=== PATIENT | female | born 1950 | race Caucasian/White ===

== ENCOUNTER 2017-12-02 00:18 | Inpatient (IN) | payer MEDICARE, BC ==
[2017-12-02 01:18] LABS: ADD MAN DIFF? NO
[2017-12-02] MEDS: morphine 4 MG/ML VIAL IV (01:33)
[2017-12-02] MEDS: ONDANSETRON 4 MG INJ IV (01:33)
[2017-12-02 01:43] LABS: ALANINE AMINOTRANSFERASE 37 IU/L (13-69); ALBUMIN 4.4 g/dl (3.3-4.9); ALBUMIN/GLOBULIN RATIO 1.15; ALKALINE PHOSPHATASE 84 IU/L (42-121); ANION GAP 19 (8-16); ASPARTATE AMINO TRANSFERASE 33 IU/L (15-46); BILIRUBIN,INDIRECT 0.2 mg/dl (0-1.1); BILIRUBIN,TOTAL 0.2 mg/dl (0.2-1.3); BLOOD UREA NITROGEN 17 mg/dl (7-20); CALCIUM 10.2 mg/dl (8.4-10.2); CARBON DIOXIDE 20 mmol/L (21-31); CHLORIDE 108 mmol/L (97-110); CREATININE 0.76 mg/dl (0.44-1.00); GLUCOSE 110 mg/dl (70-220); LIPASE 116 U/L (23-300); POTASSIUM 4.7 mmol/L (3.5-5.1); SODIUM 142 mmol/L (135-144); TOTAL PROTEIN 8.2 g/dl (6.1-8.1)
[2017-12-02 03:05] LABS: ADD UMIC YES; UR ASCORBIC ACID NEGATIVE (NEGATIVE); UR BACTERIA FEW /HPF (NONE SEEN); UR BILIRUBIN (Dip) NEGATIVE (NEGATIVE); UR BLOOD (Dip) 1+ mg/dL (NEGATIVE); UR CLARITY CLEAR (CLEAR); UR COLOR STRAW (YELLOW); UR GLUCOSE (Dip) NEGATIVE (NEGATIVE); UR KETONES (Dip) NEGATIVE (NEGATIVE); UR LEUKOCYTE ESTERASE (Dip) 1+ Leu/ul (NEGATIVE); UR MUCUS FEW /HPF (NONE SEEN); UR NITRITE (Dip) NEGATIVE (NEGATIVE); UR RBC 2 /HPF (0-5); UR SPECIFIC GRAVITY (Dip) 1.008 (1.003-1.030); UR SQUAMOUS EPITHELIAL CELL FEW /HPF (FEW); UR TOTAL PROTEIN (Dip) NEGATIVE (NEGATIVE); UR UROBILINOGEN (Dip) NEGATIVE (NEGATIVE); UR WBC 4 /HPF (0-5)
[2017-12-02 03:10] LABS: BASOPHIL # 0.1 10^3/ul (0.0-0.1); BASOPHILS % 0.4 % (0.0-2.0); EOSINOPHILS # 0.1 10^3/ul (0.0-0.5); EOSINOPHILS % 0.9 % (0.0-7.0); HEMATOCRIT 43.4 % (37.0-47.0); HEMOGLOBIN 14.6 g/dl (12.0-16.0); LYMPHOCYTES # 3.3 10^3/ul (0.8-2.9); LYMPHOCYTES % 23.3 % (15.0-51.0); MEAN CORPUSCULAR HEMOGLOBIN 28.9 pg (29.0-33.0); MEAN CORPUSCULAR HGB CONC 33.6 g/dl (32.0-37.0); MEAN CORPUSCULAR VOLUME 85.9 fl (82.0-101.0); MEAN PLATELET VOLUME 11.3 fl (7.4-10.4); MONOCYTE # 1.2 10^3/ul (0.3-0.9); MONOCYTES % 8.6 % (0.0-11.0); NEUTROPHIL # 9.3 10^3/ul (1.6-7.5); NEUTROPHILS % 66.5 % (39.0-77.0); PLATELET COUNT 276 10^3/UL (140-415); RED BLOOD COUNT 5.05 10^6/ul (4.20-5.40); RED CELL DISTRIBUTION WIDTH 12.8 % (11.5-14.5)
[2017-12-02] MEDS: CEFTRIAXONE 1 GM/50 ML (PMX) 50 ML IVPB (03:31)
[2017-12-02] MEDS ORDERED: NACL 0.9% 3 ML SYG IV (04:30)
[2017-12-02] MEDS ORDERED: BISACODYL (EC) 5 MG TAB PO (04:30)
[2017-12-02] MEDS ORDERED: morphine 2 MG INJ IV (04:30)
[2017-12-02] MEDS ORDERED: ONDANSETRON 4 MG INJ IV (04:30)
[2017-12-02] MEDS ORDERED: DOCUSATE SODIUM 100 MG CAP PO (04:30)
[2017-12-02] MEDS ORDERED: ACETAMINOPHEN 325 MG TAB PO (04:30)
[2017-12-02] MEDS: SOD CHLORIDE 0.9% 1,000 ML IV ×3 (05:01→17:39)
[2017-12-02] MEDS: LEVOFLOXACIN 750MG/D5W (PMX) 150 ML IVPB (05:01)
[2017-12-02] MEDS: TAMSULOSIN (SR) 0.4 MG CAP PO (10:52)
[2017-12-02] MEDS: AMLODIPINE 10 MG TAB PO (10:53)
[2017-12-02] MEDS: OLOPATADINE 0.1% 5 ML OPH BOTH EYES ×2 (11:07→21:58)
[2017-12-02 11:39] LABS: ADD MAN DIFF? NO
[2017-12-02 11:43] LABS: WHITE BLOOD COUNT 7.7 10^3/ul (4.8-10.8)
[2017-12-02 11:43] LABS: BASOPHILS % 0.3 % (0.0-2.0); EOSINOPHILS # 0.1 10^3/ul (0.0-0.5); EOSINOPHILS % 0.8 % (0.0-7.0); HEMATOCRIT 36.9 % (37.0-47.0); HEMOGLOBIN 12.7 g/dl (12.0-16.0); LYMPHOCYTES # 1.4 10^3/ul (0.8-2.9); LYMPHOCYTES % 18.8 % (15.0-51.0); MEAN CORPUSCULAR HEMOGLOBIN 29.6 pg (29.0-33.0); MEAN CORPUSCULAR HGB CONC 34.4 g/dl (32.0-37.0); MEAN PLATELET VOLUME 10.2 fl (7.4-10.4); MONOCYTE # 0.8 10^3/ul (0.3-0.9); MONOCYTES % 10.1 % (0.0-11.0); NEUTROPHIL # 5.3 10^3/ul (1.6-7.5); NEUTROPHILS % 69.6 % (39.0-77.0); PLATELET COUNT 258 10^3/UL (140-415); RED BLOOD COUNT 4.29 10^6/ul (4.20-5.40)
[2017-12-02 11:54] LABS: HEMOGLOBIN A1C 5.6 % (0-5.9)
[2017-12-02 12:17] LABS: MAGNESIUM 1.8 mg/dl (1.7-2.5)
[2017-12-02 12:18] LABS: ALANINE AMINOTRANSFERASE 103 IU/L (13-69); ALBUMIN 3.6 g/dl (3.3-4.9); ALBUMIN/GLOBULIN RATIO 1.12; ALKALINE PHOSPHATASE 125 IU/L (42-121); ANION GAP 11 (8-16); ASPARTATE AMINO TRANSFERASE 110 IU/L (15-46); BILIRUBIN,INDIRECT 0.4 mg/dl (0-1.1); BILIRUBIN,TOTAL 0.4 mg/dl (0.2-1.3); BLOOD UREA NITROGEN 15 mg/dl (7-20); CALCIUM 9.3 mg/dl (8.4-10.2); CARBON DIOXIDE 28 mmol/L (21-31); CHLORIDE 107 mmol/L (97-110); CREATININE 0.67 mg/dl (0.44-1.00); GLUCOSE 97 mg/dl (70-220); POTASSIUM 3.8 mmol/L (3.5-5.1); SODIUM 142 mmol/L (135-144); TOTAL PROTEIN 6.8 g/dl (6.1-8.1)
[2017-12-02 13:13] LABS: CHOLESTEROL 122 mg/dl (100-200)
[2017-12-02 13:13] LABS: CHOL/HDL RATIO 4.6 RATIO; HDL CHOLESTEROL 26 mg/dl (35-98); LDL CHOLESTEROL,CALCULATED 73 mg/dl; TRIGLYCERIDES 116 mg/dl (0-149)
[2017-12-02] MEDS: ALBUTEROL HFA 8 GM INHALER INH ×3 (13:21→20:00)
[2017-12-02] MEDS: FLUTICASONE 0.05% 16 GM NAS SPRAY NASAL (21:34)
[2017-12-03] MEDS: SOD CHLORIDE 0.9% 1,000 ML IV ×3 (00:09→21:01)
[2017-12-03] MEDS: ALBUTEROL HFA 8 GM INHALER INH ×4 (02:00→21:00)
[2017-12-03] MEDS: LEVOFLOXACIN 750MG/D5W (PMX) 150 ML IVPB ×2 (05:00→08:54)
[2017-12-03 05:07] LABS: ADD MAN DIFF? NO
[2017-12-03 05:14] LABS: WHITE BLOOD COUNT 6.2 10^3/ul (4.8-10.8)
[2017-12-03 05:14] LABS: BASOPHILS % 0.6 % (0.0-2.0); EOSINOPHILS # 0.1 10^3/ul (0.0-0.5); EOSINOPHILS % 2.3 % (0.0-7.0); HEMATOCRIT 37.1 % (37.0-47.0); HEMOGLOBIN 12.6 g/dl (12.0-16.0); LYMPHOCYTES # 2.3 10^3/ul (0.8-2.9); LYMPHOCYTES % 36.5 % (15.0-51.0); MEAN CORPUSCULAR HEMOGLOBIN 29.5 pg (29.0-33.0); MEAN CORPUSCULAR VOLUME 86.9 fl (82.0-101.0); MEAN PLATELET VOLUME 10.8 fl (7.4-10.4); MONOCYTE # 0.6 10^3/ul (0.3-0.9); MONOCYTES % 9.7 % (0.0-11.0); NEUTROPHIL # 3.1 10^3/ul (1.6-7.5); NEUTROPHILS % 50.7 % (39.0-77.0); PLATELET COUNT 285 10^3/UL (140-415); RED BLOOD COUNT 4.27 10^6/ul (4.20-5.40); RED CELL DISTRIBUTION WIDTH 13.2 % (11.5-14.5)
[2017-12-03 05:42] LABS: PHOSPHORUS 3.5 mg/dl (2.5-4.9)
[2017-12-03 05:42] LABS: MAGNESIUM 1.9 mg/dl (1.7-2.5)
[2017-12-03 06:00] LABS: ALANINE AMINOTRANSFERASE 81 IU/L (13-69); ALBUMIN 3.7 g/dl (3.3-4.9); ALBUMIN/GLOBULIN RATIO 1.27; ALKALINE PHOSPHATASE 111 IU/L (42-121); ANION GAP 14 (8-16); ASPARTATE AMINO TRANSFERASE 48 IU/L (15-46); BILIRUBIN,INDIRECT 0.5 mg/dl (0-1.1); BILIRUBIN,TOTAL 0.5 mg/dl (0.2-1.3); BLOOD UREA NITROGEN 13 mg/dl (7-20); CARBON DIOXIDE 26 mmol/L (21-31); CHLORIDE 109 mmol/L (97-110); CREATININE 0.63 mg/dl (0.44-1.00); GLUCOSE 91 mg/dl (70-220); POTASSIUM 3.7 mmol/L (3.5-5.1); SODIUM 145 mmol/L (135-144); TOTAL PROTEIN 6.6 g/dl (6.1-8.1)
[2017-12-03] MEDS: FLUTICASONE 0.05% 16 GM NAS SPRAY NASAL ×2 (08:55→21:00)
[2017-12-03] MEDS: OLOPATADINE 0.1% 5 ML OPH BOTH EYES ×2 (08:55→21:00)
[2017-12-03] MEDS: AMLODIPINE 10 MG TAB PO (08:56)
[2017-12-03] MEDS: TAMSULOSIN (SR) 0.4 MG CAP PO ×2 (11:46→21:02)
[2017-12-03 13:21] LABS: HAAIG REFLEX REFLEX FILED
[2017-12-03 14:00] LABS: HEPATITIS B SURFACE ANTIGEN NEGATIVE (NEGATIVE)
[2017-12-03 14:19] LABS: HEPATITIS B CORE ANTIBODY NEGATIVE (NEGATIVE); HEPATITIS C VIRAL ANTIBODY NEGATIVE (NEGATIVE)
[2017-12-03] MEDS: POLYETHYLENE GLYCOL 17 GM PACKET PO (21:00)
[2017-12-04] MEDS: ALBUTEROL HFA 8 GM INHALER INH ×3 (02:00→13:43)
[2017-12-04] MEDS: LEVOFLOXACIN 750MG/D5W (PMX) 150 ML IVPB (04:13)
[2017-12-04 05:30] LABS: HAAIG REFLEX REFLEX FILED
[2017-12-04 05:31] LABS: ADD MAN DIFF? NO
[2017-12-04 05:33] LABS: BASOPHILS % 0.6 % (0.0-2.0); EOSINOPHILS # 0.1 10^3/ul (0.0-0.5); EOSINOPHILS % 1.7 % (0.0-7.0); HEMATOCRIT 36.1 % (37.0-47.0); HEMOGLOBIN 12.4 g/dl (12.0-16.0); LYMPHOCYTES # 2.4 10^3/ul (0.8-2.9); LYMPHOCYTES % 37.1 % (15.0-51.0); MEAN CORPUSCULAR HEMOGLOBIN 29.9 pg (29.0-33.0); MEAN CORPUSCULAR HGB CONC 34.3 g/dl (32.0-37.0); MEAN PLATELET VOLUME 10.7 fl (7.4-10.4); MONOCYTE # 0.6 10^3/ul (0.3-0.9); MONOCYTES % 8.6 % (0.0-11.0); NEUTROPHIL # 3.3 10^3/ul (1.6-7.5); NEUTROPHILS % 51.8 % (39.0-77.0); PLATELET COUNT 281 10^3/UL (140-415); RED BLOOD COUNT 4.15 10^6/ul (4.20-5.40); RED CELL DISTRIBUTION WIDTH 13.1 % (11.5-14.5)
[2017-12-04 05:33] LABS: WHITE BLOOD COUNT 6.4 10^3/ul (4.8-10.8)
[2017-12-04] MEDS: SOD CHLORIDE 0.9% 1,000 ML IV ×4 (06:09→20:54)
[2017-12-04 06:34] LABS: ALANINE AMINOTRANSFERASE 55 IU/L (13-69); ALBUMIN 3.5 g/dl (3.3-4.9); ALBUMIN/GLOBULIN RATIO 1.06; ALKALINE PHOSPHATASE 96 IU/L (42-121); ANION GAP 14 (8-16); ASPARTATE AMINO TRANSFERASE 28 IU/L (15-46); BILIRUBIN,INDIRECT 0.3 mg/dl (0-1.1); BILIRUBIN,TOTAL 0.3 mg/dl (0.2-1.3); BLOOD UREA NITROGEN 11 mg/dl (7-20); CALCIUM 9.6 mg/dl (8.4-10.2); CARBON DIOXIDE 25 mmol/L (21-31); CHLORIDE 110 mmol/L (97-110); GLUCOSE 97 mg/dl (70-220); POTASSIUM 3.5 mmol/L (3.5-5.1); SODIUM 145 mmol/L (135-144); TOTAL PROTEIN 6.8 g/dl (6.1-8.1)
[2017-12-04 06:54] LABS: MAGNESIUM 1.7 mg/dl (1.7-2.5)
[2017-12-04 06:54] LABS: PHOSPHORUS 3.9 mg/dl (2.5-4.9)
[2017-12-04 08:23] LABS: HEPATITIS B SURFACE ANTIGEN NEGATIVE (NEGATIVE)
[2017-12-04 08:41] LABS: HEPATITIS B CORE ANTIBODY NEGATIVE (NEGATIVE); HEPATITIS C VIRAL ANTIBODY NEGATIVE (NEGATIVE)
[2017-12-04] MEDS: FLUTICASONE 0.05% 16 GM NAS SPRAY NASAL ×4 (09:00→21:00)
[2017-12-04] MEDS: OLOPATADINE 0.1% 5 ML OPH BOTH EYES ×4 (09:00→21:00)
[2017-12-04] MEDS: POLYETHYLENE GLYCOL 17 GM PACKET PO ×2 (09:05→20:54)
[2017-12-04] MEDS: LOSARTAN 50 MG TAB PO (09:05)
[2017-12-04] MEDS: TAMSULOSIN (SR) 0.4 MG CAP PO ×2 (09:05→20:54)
[2017-12-04] MEDS ORDERED: NA PHOSPHATE/BIPHOS 133 ML ENEMA PR (12:30)
[2017-12-05] MEDS: LEVOFLOXACIN 750MG/D5W (PMX) 150 ML IVPB (05:13)
[2017-12-05 06:01] LABS: ADD MAN DIFF? NO
[2017-12-05 06:16] LABS: WHITE BLOOD COUNT 8.9 10^3/ul (4.8-10.8)
[2017-12-05 06:16] LABS: HEMATOCRIT 37.5 % (37.0-47.0); HEMOGLOBIN 12.9 g/dl (12.0-16.0); LYMPHOCYTES % 31.8 % (15.0-51.0); MEAN CORPUSCULAR HEMOGLOBIN 29.8 pg (29.0-33.0); MEAN CORPUSCULAR HGB CONC 34.4 g/dl (32.0-37.0); MEAN CORPUSCULAR VOLUME 86.6 fl (82.0-101.0); MEAN PLATELET VOLUME 11.1 fl (7.4-10.4); MONOCYTES % 7.1 % (0.0-11.0); NEUTROPHILS % 59.1 % (39.0-77.0); PLATELET COUNT 303 10^3/UL (140-415); RED BLOOD COUNT 4.33 10^6/ul (4.20-5.40)
[2017-12-05 06:17] LABS: BASOPHILS % 0.3 % (0.0-2.0); EOSINOPHILS # 0.1 10^3/ul (0.0-0.5); EOSINOPHILS % 1.5 % (0.0-7.0); LYMPHOCYTES # 2.8 10^3/ul (0.8-2.9); MONOCYTE # 0.6 10^3/ul (0.3-0.9); NEUTROPHIL # 5.2 10^3/ul (1.6-7.5)
[2017-12-05 06:28] LABS: PHOSPHORUS 4.2 mg/dl (2.5-4.9)
[2017-12-05 06:28] LABS: MAGNESIUM 1.7 mg/dl (1.7-2.5)
[2017-12-05] MEDS: SOD CHLORIDE 0.9% 1,000 ML IV (06:38)
[2017-12-05 06:44] LABS: ALANINE AMINOTRANSFERASE 47 IU/L (13-69); ALBUMIN/GLOBULIN RATIO 1.33; ALKALINE PHOSPHATASE 98 IU/L (42-121); ANION GAP 16 (8-16); ASPARTATE AMINO TRANSFERASE 30 IU/L (15-46); BILIRUBIN,INDIRECT 0.1 mg/dl (0-1.1); BILIRUBIN,TOTAL 0.1 mg/dl (0.2-1.3); BLOOD UREA NITROGEN 11 mg/dl (7-20); CALCIUM 9.5 mg/dl (8.4-10.2); CARBON DIOXIDE 23 mmol/L (21-31); CHLORIDE 110 mmol/L (97-110); CREATININE 0.56 mg/dl (0.44-1.00); GLUCOSE 91 mg/dl (70-220); SODIUM 145 mmol/L (135-144)
[2017-12-05] MEDS: FLUTICASONE 0.05% 16 GM NAS SPRAY NASAL (08:24)
[2017-12-05] MEDS: TAMSULOSIN (SR) 0.4 MG CAP PO (08:24)
[2017-12-05] MEDS: LOSARTAN 50 MG TAB PO (08:24)
[2017-12-05] MEDS: POLYETHYLENE GLYCOL 17 GM PACKET PO (08:25)
[2017-12-05] MEDS: OLOPATADINE 0.1% 5 ML OPH BOTH EYES (08:26)
== END 2017-12-05 15:25 | disposition home or self-care (01) | DRG 694 ==
LOC: E/R 00:18 → MS1 04:09
DX: N13.2 Hydronephrosis with renal and ureteral calculous obstruction (principal); I10 Essential (primary) hypertension; N39.0 Urinary tract infection, site not specified; E78.5 Hyperlipidemia, unspecified; Z87.442 Personal history of urinary calculi
CPT/HCPCS: 36415; 74018; 74176; 80053; 80061; 81001; 83036; 83690; 83735; 84100; 84443; 85025; 86704; 86709; 86803; 87086; 87340; 96374; 96375; 99285-25

== ENCOUNTER 2017-12-18 01:23 | Emergency (ER) | payer MEDICARE, BC ==
[2017-12-18] MEDS: HYDROCODONE/APAP (5/325) TAB PO (06:43)
== END 2017-12-18 08:37 | disposition home or self-care (01) ==
LOC: FTE 01:23
DX: R51 Headache (principal); I10 Essential (primary) hypertension; J45.909 Unspecified asthma, uncomplicated; E66.9 Obesity, unspecified; Z79.82 Long term (current) use of aspirin
CPT/HCPCS: 70450; 99284-25

== ENCOUNTER 2018-04-21 13:59 | Emergency (ER) | payer MEDICARE, BC ==
[2018-04-21] MEDS: SOD CHLORIDE 0.9% 1,000 ML IV (14:36)
[2018-04-21] MEDS: morphine 4 MG/ML VIAL IV (14:37)
[2018-04-21] MEDS: ONDANSETRON 4 MG INJ IV ×2 (14:37→16:47)
[2018-04-21 14:44] LABS: ADD MAN DIFF? NO
[2018-04-21 14:51] LABS: BASOPHIL # 0.1 10^3/ul (0.0-0.1); BASOPHILS % 0.7 % (0.0-2.0); EOSINOPHILS # 0.2 10^3/ul (0.0-0.5); EOSINOPHILS % 2.3 % (0.0-7.0); HEMATOCRIT 38.8 % (37.0-47.0); HEMOGLOBIN 12.9 g/dl (12.0-16.0); LYMPHOCYTES # 2.4 10^3/ul (0.8-2.9); LYMPHOCYTES % 27.5 % (15.0-51.0); MEAN CORPUSCULAR HEMOGLOBIN 29.3 pg (29.0-33.0); MEAN CORPUSCULAR HGB CONC 33.2 g/dl (32.0-37.0); MEAN CORPUSCULAR VOLUME 88.2 fl (82.0-101.0); MEAN PLATELET VOLUME 10.8 fl (7.4-10.4); MONOCYTE # 0.7 10^3/ul (0.3-0.9); MONOCYTES % 8.3 % (0.0-11.0); NEUTROPHIL # 5.4 10^3/ul (1.6-7.5); PLATELET COUNT 293 10^3/UL (140-415); RED CELL DISTRIBUTION WIDTH 13.2 % (11.5-14.5)
[2018-04-21 14:51] LABS: WHITE BLOOD COUNT 8.9 10^3/ul (4.8-10.8)
[2018-04-21 14:54] LABS: ADD UMIC YES; UR ASCORBIC ACID NEGATIVE (NEGATIVE); UR BACTERIA FEW /HPF (NONE SEEN); UR BILIRUBIN (Dip) NEGATIVE (NEGATIVE); UR BLOOD (Dip) NEGATIVE (NEGATIVE); UR CLARITY CLEAR (CLEAR); UR COLOR YELLOW (YELLOW); UR GLUCOSE (Dip) NEGATIVE (NEGATIVE); UR KETONES (Dip) NEGATIVE (NEGATIVE); UR LEUKOCYTE ESTERASE (Dip) 1+ Leu/ul (NEGATIVE); UR NITRITE (Dip) NEGATIVE (NEGATIVE); UR RBC 1 /HPF (0-5); UR SPECIFIC GRAVITY (Dip) 1.017 (1.003-1.030); UR SQUAMOUS EPITHELIAL CELL FEW /HPF (FEW); UR TOTAL PROTEIN (Dip) NEGATIVE (NEGATIVE); UR UROBILINOGEN (Dip) NEGATIVE (NEGATIVE); UR WBC 4 /HPF (0-5)
[2018-04-21 15:03] LABS: ALANINE AMINOTRANSFERASE 33 IU/L (13-69); ALBUMIN 3.9 g/dl (3.3-4.9); ALBUMIN/GLOBULIN RATIO 1.18; ALKALINE PHOSPHATASE 88 IU/L (42-121); AMYLASE 58 U/L (11-123); ANION GAP 13 (8-16); ASPARTATE AMINO TRANSFERASE 24 IU/L (15-46); BILIRUBIN,INDIRECT 0.2 mg/dl (0-1.1); BILIRUBIN,TOTAL 0.2 mg/dl (0.2-1.3); BLOOD UREA NITROGEN 20 mg/dl (7-20); CALCIUM 9.5 mg/dl (8.4-10.2); CARBON DIOXIDE 29 mmol/L (21-31); CHLORIDE 111 mmol/L (97-110); CREATININE 0.74 mg/dl (0.44-1.00); GLUCOSE 92 mg/dl (70-220); LIPASE 77 U/L (23-300); POTASSIUM 3.8 mmol/L (3.5-5.1); SODIUM 149 mmol/L (135-144); TOTAL PROTEIN 7.2 g/dl (6.1-8.1)
[2018-04-21 15:06] LABS: INR 0.97
[2018-04-21 15:07] LABS: PARTIAL THROMBOPLASTIN TIME 30.2 Sec (25.0-35.0)
[2018-04-21 15:24] LABS: TROPONIN-I < 0.012 ng/ml (0.000-0.120)
[2018-04-21] MEDS: KETOROLAC 30 MG INJ IV (16:47)
[2018-04-21] MEDS: HYDROmorphONE 1 MG/5 ML IV SYRINGE IV (16:48)
== END 2018-04-21 19:14 | disposition home or self-care (01) ==
LOC: E/R 13:59
DX: N20.0 Calculus of kidney (principal); N30.00 Acute cystitis without hematuria; J45.909 Unspecified asthma, uncomplicated; I10 Essential (primary) hypertension; Z79.82 Long term (current) use of aspirin
CPT/HCPCS: 36415; 74176; 80053; 81001; 82150; 83690; 84484; 85025; 85610; 85730; 87086; 96374; 96375; 96376; 99285-25

== ENCOUNTER 2018-08-10 17:10 | Emergency (ER) | payer MEDICARE, BC | END 2018-08-10 20:30 | disposition home or self-care (01) | LOC: FTE 20:30 | DX: H10.13 Acute atopic conjunctivitis, bilateral (principal); H66.92 Otitis media, unspecified, left ear; I10 Essential (primary) hypertension; J45.909 Unspecified asthma, uncomplicated; Z79.82 Long term (current) use of aspirin | CPT/HCPCS: 99283 ==

== ENCOUNTER 2018-08-31 17:24 | Emergency (ER) | payer MEDICARE, BC ==
[2018-08-31 19:01] LABS: ADD MAN DIFF? NO
[2018-08-31] MEDS: KETOROLAC 15 MG INJ IV (19:03)
[2018-08-31] MEDS: SOD CHLORIDE 0.9% 500 ML IV (19:05)
[2018-08-31 19:08] LABS: WHITE BLOOD COUNT 7.9 10^3/ul (4.8-10.8)
[2018-08-31 19:08] LABS: BASOPHILS % 0.4 % (0.0-2.0); EOSINOPHILS # 0.1 10^3/ul (0.0-0.5); EOSINOPHILS % 1.8 % (0.0-7.0); HEMATOCRIT 38.4 % (37.0-47.0); HEMOGLOBIN 12.7 g/dl (12.0-16.0); LYMPHOCYTES # 2.1 10^3/ul (0.8-2.9); LYMPHOCYTES % 26.5 % (15.0-51.0); MEAN CORPUSCULAR HEMOGLOBIN 28.6 pg (29.0-33.0); MEAN CORPUSCULAR HGB CONC 33.1 g/dl (32.0-37.0); MEAN CORPUSCULAR VOLUME 86.5 fl (82.0-101.0); MEAN PLATELET VOLUME 10.6 fl (7.4-10.4); MONOCYTE # 0.6 10^3/ul (0.3-0.9); MONOCYTES % 7.3 % (0.0-11.0); NEUTROPHILS % 63.7 % (39.0-77.0); PLATELET COUNT 280 10^3/UL (140-415); RED BLOOD COUNT 4.44 10^6/ul (4.20-5.40); RED CELL DISTRIBUTION WIDTH 13.3 % (11.5-14.5)
[2018-08-31 19:27] LABS: INR 0.99; PROTIME 13.2 Sec (11.9-14.9)
[2018-08-31 19:28] LABS: PARTIAL THROMBOPLASTIN TIME 29.2 Sec (23.0-35.0)
[2018-08-31 19:37] LABS: ALBUMIN 4.1 g/dl (3.3-4.9); ALBUMIN/GLOBULIN RATIO 1.32; ALKALINE PHOSPHATASE 90 IU/L (42-121); ANION GAP 11 (8-16); ASPARTATE AMINO TRANSFERASE 37 IU/L (15-46); BILIRUBIN,INDIRECT 0.3 mg/dl (0-1.1); BILIRUBIN,TOTAL 0.3 mg/dl (0.2-1.3); BLOOD UREA NITROGEN 16 mg/dl (7-20); CALCIUM 9.6 mg/dl (8.4-10.2); CARBON DIOXIDE 24 mmol/L (21-31); CHLORIDE 113 mmol/L (97-110); CREATININE 0.43 mg/dl (0.44-1.00); GLUCOSE 131 mg/dl (70-220); LIPASE 78 U/L (23-300); POTASSIUM 3.7 mmol/L (3.5-5.1); SODIUM 144 mmol/L (135-144); TOTAL PROTEIN 7.2 g/dl (6.1-8.1)
[2018-08-31 19:38] LABS: ETHANOL < 10.0 mg/dl
[2018-08-31 19:48] LABS: ALANINE AMINOTRANSFERASE 38 IU/L (13-69)
== END 2018-08-31 20:16 | disposition home or self-care (01) ==
LOC: E/R 17:24
DX: S73.101A Unspecified sprain of right hip, initial encounter (principal); M17.11 Unilateral primary osteoarthritis, right knee; S93.601A Unspecified sprain of right foot, initial encounter; I10 Essential (primary) hypertension; J45.909 Unspecified asthma, uncomplicated; R56.9 Unspecified convulsions; R07.9 Chest pain, unspecified; W18.39XA Other fall on same level, initial encounter; Z79.82 Long term (current) use of aspirin
CPT/HCPCS: 36415; 70450; 71045; 72170; 73562; 73630; 80053; 80307; 83690; 85025; 85610; 85730; 96374; 99285-25

== ENCOUNTER 2019-08-13 17:40 | Emergency (ER) | payer MEDICARE, BC ==
[2019-08-13] MEDS: traMADol 50 MG TAB PO (20:36)
[2019-08-13] MEDS: KETOROLAC 30 MG INJ IM (20:37)
== END 2019-08-13 20:46 | disposition home or self-care (01) ==
LOC: FTE 17:40
DX: M54.2 Cervicalgia (principal); I10 Essential (primary) hypertension; J45.909 Unspecified asthma, uncomplicated; Z79.82 Long term (current) use of aspirin
CPT/HCPCS: 72040; 96372; 99284-25